=== PATIENT | female | born 2000 | race Caucasian/White ===

== ENCOUNTER 2025-01-11 17:56 | Emergency (ER) | payer OTHER, SELFPAY ==
[2025-01-11 17:58] VITALS: BP 132/98
[2025-01-11 19:26] VITALS: BMI 21.9
[2025-01-11] MEDS: TORADOL 30 MG IV (19:38)
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
== END 2025-01-11 20:22 | disposition home or self-care (01) ==
LOC: EMR 17:56
PROVIDERS: EMERGENCY PHYSICIAN Emergency Medicine
DX: M25.511 Pain in right shoulder (principal); V89.2XXA Person injured in unspecified motor-vehicle accident, traffic, initial encounter
CPT/HCPCS: 99283; 96374; 73030